=== PATIENT | female | born 1975 | race Caucasian/White ===

== ENCOUNTER 2016-12-24 15:23 | Emergency (ER) | payer BC ==
[~2016-12-24] VITALS: Ht 170.2 cm; Wt 75.0 kg
[2016-12-24] MEDS ORDERED: KETOROLAC 30MG/ML VIAL IV ONE (17:00)
[2016-12-24] MEDS ORDERED: LORAZEPAM 0.5MG TABLET PO ONE (17:00)
[2016-12-24 20:00] VITALS: BP 127/78
== END 2016-12-24 21:00 | disposition home or self-care (01) ==
LOC: ER 15:33
DX: F41.9 Anxiety disorder, unspecified (principal); K21.9 Gastro-esophageal reflux disease without esophagitis
CPT/HCPCS: 36415; 71010; 84484; 93005; 96374; 99285; J1885; Z7610